=== PATIENT | female | born 1985 | race Hispanic/Latino ===

== ENCOUNTER 2020-06-08 06:22 | Emergency (ER) | payer MEDICAID, OTHER ==
[~2020-06-08] VITALS: Ht 165.1 cm; Wt 110.7 kg
[2020-06-08 06:36] LABS: BASOPHILS % (AUTO) 0.5 % (0.0-5.0); EOSINOPHILS % (AUTO) 3.9 % (0.0-8.0); HEMATOCRIT 41.7 % (36-48); LYMPHOCYTES % (AUTO) 27.6 % (21.0-51.0); MEAN CORPUSCULAR HEMOGLOBIN 28.3 pg (27.0-33.0); MEAN CORPUSCULAR HGB CONC 32.9 g/dL (32.0-36.0); MEAN CORPUSCULAR VOLUME 86.2 fL (79-99); MONOCYTES % (AUTO) 7.2 % (3.0-13.0); NEUTROPHILS % (AUTO) 60.6 % (40.0-77.0); PLATELET COUNT (AUTO) 259 K/uL (130-400); RED BLOOD CELL COUNT(AUTO) 4.84 MIL/uL (4.00-5.50); RED CELL DISTRIBUTION WIDTH 13.4 % (11.0-15.5); WHITE BLOOD COUNT (AUTO) 8.6 K/uL (4.8-10.8)
[2020-06-08 06:47] LABS: CREATININE 0.6 mg/dL (0.5-1.5); POTASSIUM 3.8 mmol/L (3.5-5.1)
[2020-06-08 06:50] LABS: INR 0.99 (0.85-1.15); PARTIAL THROMBOPLASTIN TIME 27.3 SEC (26.3-35.5); PROTHROMBIN TIME 10.7 SEC (9.6-11.6)
[2020-06-08] MEDS ORDERED: KETOROLAC TROMETHAMINE 30MG/ML ONE (06:51)
[2020-06-08] MEDS ORDERED: CYCLOBENZAPRINE HCL 10 MG TABLET ONE (06:52)
[2020-06-08 06:56] LABS: ALBUMIN 3.8 g/dL (3.5-5.0); BILIRUBIN,TOTAL 0.4 mg/dL (0.2-1.0); TOTAL PROTEIN, SERUM 7.6 g/dL (6.0-8.3)
[2020-06-08] MEDS ORDERED: LIDOCAINE 5% TOPICAL PATCH TP SCH (07:15)
[2020-06-08] MEDS ORDERED: LIDOCAINE 5% TOPICAL PATCH TP ONE (08:09)
== END 2020-06-08 08:20 | disposition home or self-care (01) ==
LOC: EDH 06:22
DX: R07.89 Other chest pain (principal); M62.838 Other muscle spasm; M54.6 Pain in thoracic spine; Z72.0 Tobacco use
CPT/HCPCS: 36415; 80053; 81025; 82550; 84484; 85025; 85610; 85730; 93005; 96374; 99284; J1885

== ENCOUNTER 2023-02-22 16:17 | Emergency (ER) | payer OTHER ==
[~2023-02-22] VITALS: Ht 165.1 cm; Wt 113.4 kg
[2023-02-22 16:23] VITALS: BP 158/90
[2023-02-22 17:18] LABS: BASOPHILS % (AUTO) 0.4 % (0.0-5.0); EOSINOPHILS % (AUTO) 2.5 % (0.0-8.0); HEMATOCRIT 41.1 % (36-48); LYMPHOCYTES % (AUTO) 33.8 % (21.0-51.0); MEAN CORPUSCULAR HGB CONC 33.1 g/dL (32.0-36.0); MEAN CORPUSCULAR VOLUME 90.5 fL (79-99); MONOCYTES % (AUTO) 8.6 % (3.0-13.0); NEUTROPHILS % (AUTO) 54.2 % (40.0-77.0); PLATELET COUNT (AUTO) 251 K/uL (130-400); RED BLOOD CELL COUNT(AUTO) 4.54 MIL/uL (4.00-5.50); RED CELL DISTRIBUTION WIDTH 13.5 % (11.0-15.5); WHITE BLOOD COUNT (AUTO) 7.9 K/uL (4.8-10.8)
[2023-02-22 17:30] LABS: CREATININE 0.8 mg/dL (0.5-1.5); POTASSIUM 3.7 mmol/L (3.5-5.1)
[2023-02-22 17:39] LABS: ALBUMIN 3.2 g/dL (3.5-5.0); TOTAL PROTEIN, SERUM 6.9 g/dL (6.0-8.3)
[2023-02-22 17:40] LABS: APPEARANCE,URINE CLEAR (CLEAR); BILIRUBIN,URINE NEGATIVE (NEGATIVE); COLOR,URINE LIGHT-YELLOW (YELLOW); GLUCOSE, URINE (UA) NEGATIVE (NEGATIVE); KETONES,URINE NEGATIVE (NEGATIVE); LEUKOCYTE ESTERASE ,URINE 25 Leu/uL (NEGATIVE); NITRATE,URINE NEGATIVE (NEGATIVE); OCCULT BLOOD,URINE NEGATIVE (NEGATIVE); PH,URINE 6.5 (5.0-8.0); PROTEIN,URINE NEGATIVE (NEGATIVE); UROBILINOGEN,URINE 0.2 mg/dL (0.2-1.0)
[2023-02-22 17:42] LABS: HCG,QUALITATIVE URINE NEGATIVE (NEGATIVE)
[2023-02-22 17:58] LABS: BACTERIA,URINE FEW /HPF (None Seen); MUCUS,URINE RARE LPF (None Seen); SQUAMOUS EPITHELIAL CELL,UR MOD /HPF (0-2)
== END 2023-02-22 20:00 | disposition home or self-care (01) ==
LOC: EDH 16:17
DX: R06.02 Shortness of breath (principal); R21 Rash and other nonspecific skin eruption
CPT/HCPCS: 36415; 71045; 80053; 81001; 81025; 83690; 84484; 85025; 87088; 93005

== ENCOUNTER 2025-06-05 19:49 | Emergency (ER) | payer BC ==
[~2025-06-05] VITALS: Ht 162.6 cm; Wt 123.4 kg
--- NOTE | 2025-06-05 20:02 | NUR ---
PT CARE ASSUMED AT THIS TIME
[2025-06-05 20:15] VITALS: TEMP 98.1
--- NOTE | 2025-06-05 20:56 | ERN ---
General Chief Complaint: Abscess Stated Complaint: C/O ABSCESS TO VAGINAL AREA Time Seen by MD: 20:08 Source: patient History of Present Illness Initial Comments 40-year-old female with a past medical history of hypertension and anemia comes in with a ruptured abscess in her right inguinal crease. She has date it started as a boil and continued to grow. She placed a warm towel over it in its spontaneously burst with a release of blood and purulent material. She comes in because of concerns for infection but also a lot of pain. The pain radiates along her inguinal crease to her anterior superior iliac spine and down into her groin. Vital signs show she is afebrile but her blood pressure is systolic 160 and a diastolic of 99. Allergies: Coded Allergies: No Known Drug Allergies (Verified Allergy, Unknown, 06/08/20) Past Medical History Past Medical History: Anemia, Hypertension Past Surgical History: Other Surgical History Other: TUBAL LIGATION Female( History) LMP: May 28, 2025 Constitutional: (-) chills, (-) diaphoresis, (-) fever, (-) malaise, (-) weakness, (-) other documentation Respiratory: (-) cough, (-) orthopnea, (-) short of breath, (-) stridor, (-) wheezing, (-) other documentation Cardiovascular: (-) chest pain, (-) edema, (-) palpitations, (-) syncope, (-) dyspnea on exertion, (-) other documentation Gastrointestinal/Abdominal: (-) nausea, (-) vomiting, (-) diarrhea, (-) abdominal pain, (-) abdominal distention, (-) constipation, (-) rectal bleeding, (-) dark stool/melena, (-) other documentation Genitourinary: (-) vaginal discharge, (-) vaginal bleeding, (-) dysuria, (-) frequency, (-) hematuria, (-) pain, (-) other documentation Skin: (+) abscess Physical Exam General Appearance: (+) mild distress Orientation: (+) alert, (+) oriented x 3 Eye: bilateral eye normal inspection, bilateral eye PERRL, bilateral eye EOMI Ear, Nose, Throat: (+) hearing grossly normal, (+) normal ENT inspection, (+) moist mucous membraine Neck: (+) normal inspection, (+) supple, (+) full range of motion Respiratory: (+) chest non-tender, (+) lungs clear, (+) well ventilated Heart: (+) regular, (+) no gallop Gastrointestinal: (+) soft, (+) non-tender Genital Comment Patient's right inguinal crease is extremely tender there is an obvious ruptured abscess. The surrounding skin is mildly erythematous. Vulva appear normal Results Laboratory and Microbiology Lab and Micro Result Laboratory Tests Test 06/05/25 20:37 06/05/25 21:38 Urine Color LIGHT-YELLOW (YELLOW) Urine Appearance CLEAR (CLEAR) Urine pH 5.5 (5.0-8.0) Urine Specific [place] 1.029 (1.001-1.031) Urine Protein NEGATIVE mg/dL (NEGATIVE) Urine Glucose (UA) NEGATIVE mg/dL (NEGATIVE) Urine Ketones NEGATIVE mg/dL (NEGATIVE) Urine Occult Blood +- (TRACE) (NEGATIVE) H Urine Nitrate NEGATIVE (NEGATIVE) Urine Bilirubin NEGATIVE mg/dL (NEGATIVE) Urine Urobilinogen 0.2 mg/dL (0.2-1.0) Urine Leukocyte Esterase 25 George/uL (NEGATIVE) H Urine RBC 2-5 /HPF (0-1) H Urine WBC 6-10 /HPF (0-1) H Urine Squamous Epithelial Cells RARE /HPF (0-2) Urine Bacteria None /HPF (None Seen) Urine HCG, Qualitative NEGATIVE (NEGATIVE) White Blood Count 8.9 K/uL (4.8-10.8) Red Blood Count 4.57 MIL/uL (4.00-5.50) Hemoglobin 12.9 g/dL (12.0-16.0) Hematocrit 40.6 % (36-48) Mean Corpuscular Volume 88.8 fL (79-99) Mean Corpuscular Hemoglobin 28.2 pg (27.0-33.0) Mean Corpuscular Hemoglobin Concent 31.8 g/dL (32.0-36.0) L Red Cell Distribution Width 13.4 % (11.0-15.5) Platelet Count 312 K/uL (130-400) Mean Platelet Volume 9.8 fL (7.5-10.5) Immature Granulocyte % (Auto) 0.3 % (0-1) Neutrophils (%) (Auto) 59.6 % (40.0-77.0) Lymphocytes (%) (Auto) 29.8 % (21.0-51.0) Monocytes (%) (Auto) 7.7 % (3.0-13.0) Eosinophils (%) (Auto) 2.1 % (0.0-8.0) Basophils (%) (Auto) 0.5 % (0.0-5.0) Neutrophils # (Auto) 5.3 K/uL (1.8-7.7) Lymphocytes # (Auto) 2.6 K/uL (1.0-4.8) Monocytes # (Auto) 0.7 K/uL (0.1-1.0) Eosinophils # (Auto) 0.19 K/uL (0.00-0.70) Basophils # (Auto) 0.04 K/uL (0.00-0.20) Absolute Immature Granulocyte (auto 0.03 K/uL (0-1) Nucleated Red Blood Cells 0.0 % (0.0-0.19) Sodium Level 140 mmol/L (136-145) Potassium Level 4.0 mmol/L (3.5-5.1) Chloride Level 104 mmol/L (101-111) Carbon Dioxide Level 27 mmol/L (21-32) Blood Urea Nitrogen 19 mg/dL (7-18) H Creatinine 0.7 mg/dL (0.5-1.0) Glomerular Filtration Rate Calc 113 mL/min (>90) Random Glucose 138 mg/dL (70-105) H Total Calcium 8.4 mg/dL (8.5-10.1) L MDM I will give the patient some IV antibiotics as well as pain medications. Given that the pain radiates both proximally and distally along her inguinal crease I will get a CT scan of her abdomen and pelvis with IV contrast. Once her pain is better controlled I will repeat the blood pressure measurement to be sure her blood pressure has normalized. Patient left AMA before she got her CT scan. She did get her single dose of IV antibiotics. ED Course Orders Procedure Category Date Status Time Morphine 4mg Syg PHA 06/05/25 Complete (Morphine 4mg Syg) 20:30 Cefazolin Sodium 1 Gm PHA 06/05/25 Complete Vial (Ancef 1 Gm V 20:30 Urinalysis Profile LAB 06/05/25 Complete 20:11 ,Urine Test LAB 06/05/25 Complete 20:11 Ct Abdomen/Pelvis CT 06/05/25 Logged W/Contrast 20:11 Basic Metabolic Panel LAB 06/05/25 Complete 20:49 Cbc With Differential LAB 06/05/25 Complete 20:49 Culture Urine BK 06/05/25 In Process 21:53 Current Medications Medications (Trade) Dose Ordered Sig/Chintan Route PRN Reason Start Time Stop Time Status Last Admin Dose Admin Cefazolin Sodium (ANCEF 1 gm vial) 1 gm ONCE ONCE IVPB 06/05/25 20:30 06/05/25 20:31 DC 06/05/25 20:47 Morphine Sulfate (morPHINE 4MG SYG) 4 mg ONCE ONCE IVP 06/05/25 20:30 06/05/25 20:31 DC 06/05/25 20:47 Vital Signs Date Time Temp Pulse Resp B/P (MAP) Pulse Ox O2 Delivery O2 Flow Rate FiO2 06/05/25 23:00 76 16 162/97 100 Room Air* 0 21 06/05/25 22:05 85 15 157/95 99 Room Air* 0 21 06/05/25 20:15 98.1 80 15 160/90 98 Room Air* 0 21 06/05/25 19:51 98.1 83 20 162/99 99 Room Air DX & DISP Disposition: AMA Departure Impression: Primary Impression: Abscess of groin, right Condition: Stable Referrals: SELF,REFERRAL (PCP) RONI MAYA MD Jun 05, 2025 20:56
[2025-06-05 21:34] LABS: APPEARANCE,URINE CLEAR (CLEAR); GLUCOSE, URINE (UA) NEGATIVE (NEGATIVE); LEUKOCYTE ESTERASE ,URINE 25 Leu/uL (NEGATIVE); NITRATE,URINE NEGATIVE (NEGATIVE); OCCULT BLOOD,URINE +- (TRACE) (NEGATIVE)
[2025-06-05 21:48] LABS: ADD UA MICROSCOPIC YES
[2025-06-05 21:50] LABS: HCG,QUALITATIVE URINE NEGATIVE (NEGATIVE)
[2025-06-05 21:52] LABS: SQUAMOUS EPITHELIAL CELL,UR RARE /HPF (0-2)
[2025-06-05 22:26] LABS: IMMATURE GRANULOCYTE ABSOLUTE 0.03 K/uL (0-1); NUCLEATED RED BLOOD CELLS 0.0 % (0.0-0.19); PLATELET COUNT (AUTO) 312 K/uL (130-400); RED BLOOD CELL COUNT(AUTO) 4.57 MIL/uL (4.00-5.50); RED CELL DISTRIBUTION WIDTH 13.4 % (11.0-15.5); WHITE BLOOD COUNT (AUTO) 8.9 K/uL (4.8-10.8)
[2025-06-05 22:49] LABS: CREATININE 0.7 mg/dL (0.5-1.0); GLOMERULAR FILTR. RATE CALC 113.0 mL/min (>90); GLUCOSE,RANDOM 138.0 mg/dL (70-105); SODIUM SERUM 140.0 mmol/L (136-145); UREA NITROGEN, BLOOD 19.0 mg/dL (7-18)
[2025-06-05 23:00] VITALS: BP 162/97; PULSE 76; RESP 16; O2SAT 100
--- NOTE | 2025-06-05 23:00 | NUR ---
PT REQUEST TO LEAVE AMA AT THIS TIME. PT IS A&OX4 WITH FULL DECISIONAL CAPACITY. THE PATIENT REPORTS THAT SHE UNDERSTANDS HER CONDITION AND THE RISKS ASSOICATED WITH LEAVING AMA, INCLUDING BUT NOT LIMITED TO PERMANENT DISABILITY OR AND HAS HAD THE OPPORTUNITY TO ASK QUESTIONS ABOUT THEIR MEDICAL CONDITION. THE PATIENT HAS BEEN INFORMED TO SEEK MEDICAL SERVICES IN THE EVENT OF AN EMERGENCY. PT VERBALIZED UNDERSTANDING OF THE ABOVE STATEMENTS. PT REFUSED TO SIGN AMA FORM, AMA FORM NOT SIGNED AT THIS TIME. WITNESSED BY NEERAJ ANDREWS (PRIMARY NURSE) AND EDILSON THEODORE (SECONDARY NURSE). ED MD DIOP MADE AWARE.
[2025-06-05] MEDS ORDERED: IOHEXOL 350 MG/ML 100ML INFUS..BTL IV ONE (23:11)
== END 2025-06-05 23:00 | disposition left against medical advice (07) ==
LOC: EDH 19:49
DX: L02.214 Cutaneous abscess of groin (principal); I10 Essential (primary) hypertension; Z98.51 Tubal ligation status
CPT/HCPCS: 99284; 96374; 96375; 80048; 85025; 87086; 81001; 81025; 36415; J0690; J2270; Q9967

== ENCOUNTER 2025-08-18 07:57 | Emergency (ER) | payer BC ==
[~2025-08-18] VITALS: Ht 165.1 cm; Wt 125.0 kg
--- NOTE | 2025-08-18 08:38 | NUR ---
PENDING TEST RESULTS FOR CT EXAM.
[2025-08-18 09:17] LABS: APPEARANCE,URINE CLEAR (CLEAR); GLUCOSE, URINE (UA) NEGATIVE (NEGATIVE); LEUKOCYTE ESTERASE ,URINE 25 Leu/uL (NEGATIVE); NITRATE,URINE NEGATIVE (NEGATIVE); OCCULT BLOOD,URINE NEGATIVE (NEGATIVE)
[2025-08-18 09:18] LABS: CREATININE 0.6 mg/dL (0.5-1.0); GLOMERULAR FILTR. RATE CALC 118 mL/min (>90); GLUCOSE,RANDOM 114 mg/dL (70-105); IMMATURE GRANULOCYTE ABSOLUTE 0.03 K/uL (0-1); NUCLEATED RED BLOOD CELLS 0.0 % (0.0-0.19); PLATELET COUNT (AUTO) 272 K/uL (130-400); RED BLOOD CELL COUNT(AUTO) 4.82 MIL/uL (4.00-5.50); RED CELL DISTRIBUTION WIDTH 14.5 % (11.0-15.5); SODIUM SERUM 138 mmol/L (136-145); UREA NITROGEN, BLOOD 12 mg/dL (7-18); WHITE BLOOD COUNT (AUTO) 4.9 K/uL (4.8-10.8)
[2025-08-18 09:21] LABS: ADD UA MICROSCOPIC YES; HCG,QUALITATIVE URINE NEGATIVE (NEGATIVE)
[2025-08-18 09:23] LABS: SQUAMOUS EPITHELIAL CELL,UR FEW /HPF (0-2)
[2025-08-18 09:24] LABS: ASPARTATE AMINOTRANSFERASE 17 U/L (10-37); TOTAL PROTEIN, SERUM 6.8 g/dL (6.0-8.3)
[2025-08-18 09:27] LABS: AMPHET/METH SCREEN,URINE NEGATIVE (NEGATIVE); BARBITURATE SCREEN, URINE NEGATIVE (NEGATIVE); CANNABINOID SCREEN,URINE NEGATIVE (NEGATIVE); COCAINE SCREEN,URINE POSITIVE (NEGATIVE)
[2025-08-18] MEDS: 0.9%NACL 1000ML 1,000 ML IV ONE (10:04)
--- NOTE | 2025-08-18 10:47 | HMCIMG ---
EXAM: CT Abdomen and Pelvis Without IV contrast CLINICAL HISTORY: right flank pain TECHNIQUE: Axial computed tomography images of the abdomen and pelvis without intravenous contrast. CONTRAST: No IV contrast. COMPARISON: None provided. FINDINGS: LUNG BASES: The lung bases appear clear. No pleural effusions are seen. LIVER: Unremarkable. GALLBLADDER AND BILE DUCTS: The gallbladder appears within normal limits. No radioopaque gallstones are seen. No biliary ductal dilatation is evident. PANCREAS: Unremarkable. SPLEEN: Unremarkable. ADRENAL GLANDS: Unremarkable. KIDNEYS, URETERS, AND BLADDER: The kidneys appear within normal limits. There is no hydronephrosis or hydroureter. No urinary calculi are seen. STOMACH AND BOWEL: Unremarkable appearance of the stomach and bowel. No evidence of bowel obstruction. No evidence suggesting enteritis or colitis. APPENDIX: The appendix was not clearly visualized PERITONEUM: No free fluid. No free air. LYMPH NODES: No lymphadenopathy is evident. REPRODUCTIVE: Unremarkable as visualized. VASCULATURE: No evidence of abdominal aortic aneurysm. BONES: No aggressive appearing osseous lesion. No acute osseous pathology evident. IMPRESSION: No acute intra-abdominal or pelvic abnormality. The appendix was not clearly visualized however no inflammatory changes in the right lower quadrant /[place]t
--- NOTE | 2025-08-18 11:21 | ERN ---
ED Note History of Present Illness Stated Complaint: FLANK PAIN Chief Complaint: Back Pain or Injury Time Seen by MD: 08:04 Dictation: 40-year-old female presenting to the emergency department with right flank pain that radiates to her lower abdomen no vomiting or diarrhea no bleeding in the urine. Symptoms for the past few days worse this morning Allergies: Coded Allergies: No Known Drug Allergies (Verified Allergy, Unknown, 06/08/20) Past Medical History Past Medical History: No Pertinent History Surgical History: BTL Surgical History Other: TUBAL LIGATION Review of System Dictation Constitutional: Negative for fever,chills, and weight loss Eyes: Negative for injury, pain,redness, and discharge ENT: Negative for injury,pain or swelling Cardiovascular: Negative for chest pain, palpitations, and edema Respiratory: Negative for shortness of breath, cough, and wheezing, Abdomen/GI: Per HPI : Negative for injury, bleeding and discharge MS/Extremity: Negative for injury and deformity Skin: Negative for rash, and discoloration Neuro: Negative for headache, weakness, numbness, tingling, and seizure Psych: Negative for suicide ideation, homicidal ideation, and hallucinations Initial Vital Sign VS Vital Signs Date Time Temp Pulse Resp B/P (MAP) Pulse Ox O2 Delivery O2 Flow Rate FiO2 08/18/25 08:00 97.9 84 18 167/82 99 Room Air 0 08/18/25 09:00 21 Physical Exam Dictation General: awake, alert, appears uncomfortable Head/Face: Normocephalic, atraumatic Eyes: PERRL, EOMI, vision at baseline ENT: oral cavity clear, TMs clear, no signs of infection Neck: Trachea midline, supple, no nuchal rigidity Cardiovascular: RRR, normal S1/S2, No MRGs, no JVD Respiratory: CTAB, no respiratory distress, No rales or wheezes Abdomen: Soft, non-tender, non-distended, normal bowel sounds, no guarding or rebound. Right CVA tenderness Skin: Warm, dry, normal turgor, no rash MS/Extremity: Pulses equal, no cyanosis, neurovascular intact, FROM Neuro: COAx4, GCS 15, strength 5/5, CN 2-12 intact, normal cerebellar exam, normal gait, Psych: Normal behavior, mood, and affect normal Results (Laboratory/Radiology) Laboratory/Radiology Laboratory Tests Test 08/18/25 08:37 White Blood Count 4.9 K/uL (4.8-10.8) Red Blood Count 4.82 MIL/uL (4.00-5.50) Hemoglobin 13.4 g/dL (12.0-16.0) Hematocrit 41.3 % (36-48) Mean Corpuscular Volume 85.7 fL (79-99) Mean Corpuscular Hemoglobin 27.8 pg (27.0-33.0) Mean Corpuscular Hemoglobin Concent 32.4 g/dL (32.0-36.0) Red Cell Distribution Width 14.5 % (11.0-15.5) Platelet Count 272 K/uL (130-400) Mean Platelet Volume 9.5 fL (7.5-10.5) Immature Granulocyte % (Auto) 0.6 % (0-1) Neutrophils (%) (Auto) 56.5 % (40.0-77.0) Lymphocytes (%) (Auto) 29.5 % (21.0-51.0) Monocytes (%) (Auto) 10.6 % (3.0-13.0) Eosinophils (%) (Auto) 2.4 % (0.0-8.0) Basophils (%) (Auto) 0.4 % (0.0-5.0) Neutrophils # (Auto) 2.8 K/uL (1.8-7.7) Lymphocytes # (Auto) 1.5 K/uL (1.0-4.8) Monocytes # (Auto) 0.5 K/uL (0.1-1.0) Eosinophils # (Auto) 0.12 K/uL (0.00-0.70) Basophils # (Auto) 0.02 K/uL (0.00-0.20) Absolute Immature Granulocyte (auto 0.03 K/uL (0-1) Nucleated Red Blood Cells 0.0 % (0.0-0.19) Urine Color LIGHT-YELLOW (YELLOW) Urine Appearance CLEAR (CLEAR) Urine pH 5.5 (5.0-8.0) Urine Specific [place] 1.024 (1.001-1.031) Urine Protein NEGATIVE mg/dL (NEGATIVE) Urine Glucose (UA) NEGATIVE mg/dL (NEGATIVE) Urine Ketones NEGATIVE mg/dL (NEGATIVE) Urine Occult Blood NEGATIVE (NEGATIVE) Urine Nitrate NEGATIVE (NEGATIVE) Urine Bilirubin NEGATIVE mg/dL (NEGATIVE) Urine Urobilinogen 0.2 mg/dL (0.2-1.0) Urine Leukocyte Esterase 25 George/uL (NEGATIVE) H Urine RBC 2-5 /HPF (0-1) H Urine WBC 6-10 /HPF (0-1) H Urine Squamous Epithelial Cells FEW /HPF (0-2) Urine Bacteria None /HPF (None Seen) Urine HCG, Qualitative NEGATIVE (NEGATIVE) Sodium Level 138 mmol/L (136-145) Potassium Level 3.7 mmol/L (3.5-5.1) Chloride Level 104 mmol/L (101-111) Carbon Dioxide Level 23 mmol/L (21-32) Blood Urea Nitrogen 12 mg/dL (7-18) Creatinine 0.6 mg/dL (0.5-1.0) Glomerular Filtration Rate Calc 118 mL/min (>90) Random Glucose 114 mg/dL (70-105) H Total Calcium 8.5 mg/dL (8.5-10.1) Total Bilirubin 0.1 mg/dL (0.2-1.0) L Direct Bilirubin < 0.1 mg/dL (0.0-0.3) Aspartate Amino Transf (AST/SGOT) 17 U/L (10-37) Alanine Aminotransferase (ALT/SGPT) 28 U/L (12-78) Alkaline Phosphatase 110 U/L (50-136) Total Protein 6.8 g/dL (6.0-8.3) Albumin 3.0 g/dL (3.5-5.0) L Urine Opiates Screen NEGATIVE (NEGATIVE) Urine Barbiturates Screen NEGATIVE (NEGATIVE) Urine Phencyclidine Screen NEGATIVE (NEGATIVE) Urine Amphetamines Screen NEGATIVE (NEGATIVE) Urine Benzodiazepines Screen NEGATIVE (NEGATIVE) Urine Cocaine Screen POSITIVE (NEGATIVE) H Urine Marijuana (THC) Screen NEGATIVE (NEGATIVE) Labs Reviewed?: Yes ED Course ED Course Orders Procedure Category Date Status Time Cbc With Differential LAB 08/18/25 Complete : Basic Metabolic Panel LAB 08/18/25 Complete 08: Hepatic Function Panel LAB 08/18/25 Complete 08: Drug Screen Urine LAB 08/18/25 Complete 08: Urinalysis Profile LAB 08/18/25 Complete 08: ,Urine Test LAB 08/18/25 Complete 08: Ct Abd/Pel Wo Con CT 08/18/25 Resulted Renal/Appy 08:29 Ketorolac PHA 08/18/25 Complete Tromethamine 15mg/Ml 08:29 Ondansetron 4mg Inj PHA 08/18/25 Complete (Zofran 4mg Inj) 08:29 Diazepam 5 Mg/Ml 2 Ml PHA 08/18/25 Complete Syg (Valium 5 Mg/M 08:29 0.9%Nacl 1000ml (Ns PHA 08/18/25 Complete 1000ml) 08:30 Culture Urine BK 08/18/25 Logged 09:34 Current Medications Medications (Trade) Dose Ordered Sig/Chintan Route PRN Reason Start Time Stop Time Status Last Admin Dose Admin Diazepam (VALium 5 MG/ML 2 ML SYG) 5 mg ONCE STAT IVP 08/18/25 08:29 08/18/25 08:32 DC 08/18/25 10:04 Ketorolac Tromethamine (toRADol) 15 mg ONCE STAT IV 08/18/25 08:29 08/18/25 08:32 DC 08/18/25 10:02 Ondansetron HCl (zoFRAN 4MG INJ) 4 mg ONCE STAT IVP 08/18/25 08:29 08/18/25 08:32 DC 08/18/25 10:04 Sodium Chloride 1,000 ml @ 0 mls/hr ONCE ONCE IV 08/18/25 08:30 08/18/25 08:32 DC 08/18/25 10:04 Vital Signs Date Time Temp Pulse Resp B/P (MAP) Pulse Ox O2 Delivery O2 Flow Rate FiO2 08/18/25 10:09 98.1 76 16 167/87 97 Room Air* 0 21 08/18/25 09:00 98.1 87 18 164/86 97 Room Air* 0 21 08/18/25 08:00 97.9 84 18 167/82 99 Room Air 0 Medical Decision Making MDM MDM: Differential diagnosis: Rationale: Tests considered and ordered secondary to shared decision making include: Previous outside records reviewed: Old ER visits. Risk of complication and/or morbidity or mortality of patient management: None Medications-Per medication reconciliation Need for hospitalization: Patient does not meet criteria for hospitalization. Need for emergency major/minor surgery: No There are no social concerns with this patient. Prescription drug management Prescriptions will include symptomatic care Patient's prior external medical records from other ER visits were reviewed by me as indicated. Prior testing and results from previous visits were reviewed. Prior tests were taken into account with medical decision making and resource utilization, independent historian/historians were used to obtain complete medical history. I independently interpreted the test that were performed, results were reviewed by me and considered findings on radiology if ordered. Medical management and examination interpretation discussions were had by me with other qualified healthcare professionals as indicated for the patient's care. 40-year-old female with flank pain stable exam negative workup stable for discharge CT scan stable. DX & DISP Disposition: Discharge Departure Impression: Primary Impression: Right flank pain Condition: Stable Scripts Naproxen (Naproxen) 250 Mg Tablet 250 MG PO BID for 5 Days, #10 TAB Prov: ASYA ORDONEZ MD 08/18/25 Referrals: SELF,REFERRAL (PCP) ASYA ORDONEZ MD Aug 18, 2025 11:21
[2025-08-18 11:49] VITALS: BP 145/81; PULSE 72; RESP 21; TEMP 98; O2SAT 97
== END 2025-08-18 11:58 | disposition home or self-care (01) ==
LOC: EDH 07:57
DX: R10.A1 Flank pain, right side (principal); Z98.51 Tubal ligation status
CPT/HCPCS: 99284; 74176; 96374; 96375; 96361; 80076; 80048; 80305; 85025; 87086; 81025; 36415; 81001; J1885; J7030; J3360; J2405